=== PATIENT | male | born 1995 | race Two or more races ===

== ENCOUNTER 2025-07-19 21:03 | Emergency (ER) | payer OTHER ==
[~2025-07-19] VITALS: Ht 175.3 cm; Wt 81.6 kg
[2025-07-19 22:13] VITALS: TEMP 98
[2025-07-19] MEDS: HYDROCODONE/APAP 5/325MG TABLET PO ONE (22:52)
[2025-07-19] MEDS ORDERED: HYDR-3972 PO (23:59)
[2025-07-20] MEDS ORDERED: HYDROCODONE/APAP 5/325MG TABLET ONE (00:24)
[2025-07-20 00:31] VITALS: BP 135/88; O2SAT 98
== END 2025-07-20 00:37 | disposition home or self-care (01) ==
LOC: ER 21:19
DX: S82.841A Displaced bimalleolar fracture of right lower leg, initial encounter for closed fracture (principal); S82.191A Other fracture of upper end of right tibia, initial encounter for closed fracture; X58.XXXA Exposure to other specified factors, initial encounter; Y93.66 Activity, soccer; Y92.89 Other specified places as the place of occurrence of the external cause; Y99.8 Other external cause status
CPT/HCPCS: 73564-TC; 73610-TC